=== PATIENT | female | born 1950 | race Caucasian/White ===

== ENCOUNTER → 2022-03-22 16:00 | Outpatient (BNVA) | payer MEDICARE, SELFPAY | PROVIDERS: PCP Family Medicine; Visit Provider Family Medicine | DX: R07.9 Chest pain, unspecified (principal); R53.83 Other fatigue; G93.31 Postviral fatigue syndrome; M54.6 Pain in thoracic spine; M62.838 Other muscle spasm; H81.23 Vestibular neuronitis, bilateral | CPT/HCPCS: 80053; 83735; 84443; 85025; 87426 ==